=== PATIENT | male | born 1975 | race Caucasian/White ===

== ENCOUNTER 2020-04-23 00:35 | Emergency (ER) | payer OTHER ==
[~2020-04-23 00:35] MED LIST: ONDANSETRON ODT4 MG SL; VOLTAREN **OUT50 MG PO
[2020-04-23 01:26] LABS: BASOPHIL 0.6 % (0-2); EOSINOPHIL 2.9 % (0-5); HGB 13.9 g/dl (13.2-18.0); LYMPHOCYTE 50.5 % (15-48); MCHC 33.1 g/dL (32.0-36.0); MCV 84.5 fL (78.0-100.0); MONOCYTE 9.7 % (0-12); MPV 10.7 fL (6.0-9.5); NEUTROPHIL 36.1 % (41-80); NRBC 0; PLT 218 K/uL (150-400); RBC 4.97 M/uL (4.70-6.00); RDW 13.6 % (11.5-14.0); WBC 6.3 K/uL (4.0-10.5)
[2020-04-23 01:46] LABS: ALBUMIN 3.5 g/dL (3.4-5.0); BILIRUBIN - TOTAL 0.3 mg/dL (0.2-1.0); BUN/CREAT RATIO (CALC) 14.9 RATIO; CREATININE 0.94 mg/dL (0.67-1.17); GLOBULIN (CALCULATION) 3.3 g/dL; POTASSIUM 3.9 mmol/L (3.5-5.1); TOTAL PROTEIN 6.8 g/dL (6.4-8.2)
[2020-04-23 02:26] LABS: BILIRUBIN NEGATIVE (NEGATIVE); BLOOD NEGATIVE Ery/uL (NEGATIVE); CLARITY CLEAR (CLEAR); COLOR YELLOW (YELLOW); GLUCOSE (U) NORMAL (NORMAL); LEUKOCYTES NEGATIVE Leu/uL (NEGATIVE); NITRITE NEGATIVE (NEGATIVE); PROTEIN NEGATIVE (NEGATIVE); UROBILINOGEN 0.2 mg/dL (0.2-1.0)
== END 2020-04-23 03:16 | disposition home or self-care (01) ==
LOC: FER 00:35
PROVIDERS: Emergency Medicine
DX: I10 Essential (primary) hypertension (principal); Z88.0 Allergy status to penicillin; Z88.5 Allergy status to narcotic agent
CPT/HCPCS: 36415; 71046; 80053; 81003; 85025; 93005

== ENCOUNTER 2021-05-31 18:37 | Emergency (ER) | payer OTHER ==
[2021-05-31 21:12] LABS: BASOPHIL 0.2 % (0-2); EOSINOPHIL 0.2 % (0-5); HCT 45.6 % (42.0-52.0); HGB 14.9 g/dl (13.2-18.0); LYMPHOCYTE 11.8 % (15-48); MCH 27.4 pg (25.0-31.0); MCHC 32.7 g/dL (32.0-36.0); MCV 83.8 fL (78.0-100.0); MONOCYTE 4.2 % (0-12); MPV 10.5 fL (6.0-9.5); NEUTROPHIL 83.1 % (41-80); NRBC 0; PLT 215 K/uL (150-400); RBC 5.44 M/uL (4.70-6.00); RDW 13.8 % (11.5-14.0)
[2021-05-31 21:31] LABS: BUN 15 mg/dL (7-18); BUN/CREAT RATIO (CALC) 14.3 RATIO; CHLORIDE 102 mmol/L (98-107); CO2 (BICARBONATE) 26 mmol/L (21-32); CREATININE 1.05 mg/dL (0.67-1.17); GLUCOSE 143 mg/dL (74-106); POTASSIUM 4.1 mmol/L (3.5-5.1)
[2021-05-31] MEDS ORDERED: BACLOFEN 10MG T10 MG PO (22:50)
[2021-05-31] MEDS ORDERED: PERCOCET 5-3251 EACH PO (22:50)
== END 2021-05-31 23:22 | disposition home or self-care (01) ==
LOC: FER 18:37
PROVIDERS: Nurse Practitioner Family
DX: S22.42XA Multiple fractures of ribs, left side, initial encounter for closed fracture (principal); S00.81XA Abrasion of other part of head, initial encounter; S60.511A Abrasion of right hand, initial encounter; I10 Essential (primary) hypertension; Z88.0 Allergy status to penicillin; Z88.5 Allergy status to narcotic agent; V86.59XA Driver of other special all-terrain or other off-road motor vehicle injured in nontraffic accident, initial encounter
CPT/HCPCS: 36415; 70450; 71101; 71275; 72125; 80048; 85025; 94010; G0480; J1885; J7030; Q9967